=== PATIENT | male | born 1970 | race Caucasian/White ===

== ENCOUNTER → 2017-07-17 | Outpatient (CLI) | payer OTHER ==
[~2017-07-17] MED LIST: FLEXERIL10 MG PO; GABAPENTIN300 MG PO; NORCO 5-325 TA1 EACH PO
--- NOTE | ~2017-07-17 | NDGEN ---
PATIENT'S NAME: ALEX MAGUIRE [facility] AGE: 46 Y [address] ROOM: [place] [id number] LOCATION: [facility] ADMIT DATE: 07/17/2017 Neurodiagnostics DISCHARGE DATE: FAMILY PHYSICIAN: Delonte Gaspar PA-C ATTENDING PHYSICIAN: ESTEPHANIA BROWNE PROCEDURE: NERVE CONDUCTION EMG OF THE BILATERAL UPPER AND LOWER EXTREMITIES. DATE OF PROCEDURE: 07/17/2017 INDICATION: This is a 46-year-old male patient who has progressive history of weakness, mostly proximal weakness, that has made it difficult for him to hold down work especially involving lifting. He also has weakness of the bulbar muscles including puffing out of his cheeks, a nasal quality to his speech, and also a pain syndrome for which normal pain medicines and pain treatment give him an opposite response. Nerve conduction EMG response studies were done to rule out any evidence of a peripheral neuropathy or evidence on the needle EMG to suggest a motor neuron disease, myasthenia gravis, or some signs consistent with a genetic muscular dystrophy such as myotonic dystrophy type 1. There is questionable history of phenotypical signs of myotonic dystrophy in this patient with bulbar weakness, receding hairline, proximal muscle weakness, that is progressive, and some mild cognitive impairment. Nerve conduction studies were performed in the median and ulnar nerves bilaterally, the peroneal motor and tibial nerves in the legs, and the sural sensory nerves in the legs as well as the bilateral median and ulnar sensory nerves. The only abnormality seen on the nerve conduction studies was a slight delay in the right peroneal motor onset latencies with low amplitudes down to less than 1 mV. This seems to conform with the patient having a slight dorsiflexion weakness and may represent a finding in a sciatic neuropathy either peroneal division or a lumbar radiculopathy at the L5 myotomal distribution. The nerve conduction studies were all within normal limits with normal peak onset latencies and normal nerve conduction velocities and normal amplitudes. F- wave studies were all within normal limits of the upper extremities and in the lower extremities. Next, a needle was placed into the right tibialis anterior, right gastrocnemius muscle, and quadriceps muscles of the leg. There was no evidence of any abnormal spontaneous electrical activity such as positive sharp waves or fibrillation potentials. There was full recruitment of motor unit action potentials. These motor units were of normal size and normal phases. In the right upper extremity, the same findings were seen, normal motor units on voluntary recruitment, as well as no evidence of any abnormal spontaneous electrical activity such as fibrillations or positive PATIENT'S NAME: ALEX MAGUIRE [facility] AGE: 46 Y [address] ROOM: [place], [place] [address] LOCATION: [facility] ADMIT DATE: 07/17/2017 Neurodiagnostics DISCHARGE DATE: FAMILY PHYSICIAN: Delonte Gaspar PA-C ATTENDING PHYSICIAN: ESTEPHANIA BROWNE sharp waves. The muscles tested was the abductor pollicis brevis muscle, triceps, biceps muscle and deltoid muscles. The same muscles were also done on the left upper extremity and similar testing of muscles on the left lower extremity included the tibialis anterior muscle, gastrocnemius muscle, and quadriceps all showing normal parameters. Furthermore, in none of the muscles was there any abnormal discharges such as myotonic discharges, which may be seen in myotonic dystrophy, not necessarily specific as a diagnostic finding. IMPRESSION: Nerve conduction studies and the needle EMG were essentially normal in all the nerves and muscles tested except for some subtle slowing and low amplitudes in the right peroneal motor nerve. 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 Nonetheless, the findings on the tibialis anterior muscle did show full recruitment of motor unit action potentials thus a lumbar radiculopathy is somewhat less likely. The studies today did not support evidence for a motor neuron disease such as ALS. Finally, a repetitive nerve stimulation test was performed on the right trapezius muscle stimulating accessory nerve on the right. Repetitive nerves were done as a 3 Hz volley of 10, 10 ducks in a row. The compound motor action potentials were normal and there was no evidence of any decreased response with the patient not exercising. The patient was fatigued on a 2-minute exercise, the test was performed again, again similar findings were seen. There was no evidence of any decrement response in the compound motor action potential amplitudes. Thus, the findings, repetitive nerve stimulation testing does not support a myasthenic process such as myasthenia gravis. The patient will be further worked up for a muscular dystrophy that may be familial such as myotonic dystrophy type 1 and may require genetics testing of himself and the family. MD NAHUM RUBIO/deedee /[id number] dtt: 07/24/17 1702 HOLLIE JASON R. dtd: 07/17/17 [id number]
== END | disposition disaster alternative care site (69) ==
LOC: GNEU 15:49
DX: R53.1 Weakness (principal); R29.898 Other symptoms and signs involving the musculoskeletal system; G71.0 Muscular dystrophy